=== PATIENT | female | born 1985 | race Caucasian/White ===

== ENCOUNTER 2020-01-29 16:08 | Emergency (ER) | payer OTHER, SELFPAY ==
[2020-01-29 16:16] VITALS: BP 138/86; PULSE 92; RESP 16; TEMP 37.7; O2SAT 100
--- NOTE | 2020-01-29 16:21 | ED.FEMALEGU ---
HPI - Female Genitourinary General Chief complaint: Urogenital-Female Stated complaint: frequent urination/painful urination Time Seen by Provider: 01/29/20 16:25 Source: patient and RN notes reviewed Mode of arrival: ambulatory Limitations: no limitations History of Present Illness HPI Narrative: 34-year-old female presents with concern for dysuria, frequency, low back pain that started today. She denies fever, nausea, vomiting, hematuria. Reports suprapubic discomfort MD elicited complaint: dysuria Related Data Home Medications Medication Instructions Recorded Confirmed Adderall 60 mg PO DAILY 03/13/19 01/29/20 Allergies Allergy/AdvReac Type Severity Reaction Status Date / Time bupropion Allergy Unknown Swelling Verified 01/29/20 16:31 Penicillins Allergy Unknown Hives Verified 01/29/20 16:31 Review of Systems Review of Systems: Narrative: CONSTITUTIONAL: Denies malaise, chills, sweats, or fever. CARDIOVASCULAR: Denies chest pain, palpitations RESPIRATORY: Denies cough or dyspnea. GASTROINTESTINAL: Denies abdominal pain, nausea, vomiting. Reports suprapubic discomfort GENITOURINARY: Reports dysuria, frequency. Denies hematuria. SKIN: Denies rash or itching. MUSCULOSKELETAL: Lateral low back pain. Denies myalgia. All systems reviewed & are unremarkable except as noted in HPI and below PMFSH Comments At time of signature, agree with nursing past medical, surgical, social and family history. There is no relevant family history pertinent to the presenting complaint Exam Narrative: Exam Narrative: GENERAL: Well-appearing, well-nourished, and in no acute distress. HEAD: Normocephalic. EYES: PERRLA, conjunctivae clear. NECK: Supple. No lymphadenopathy CHEST: Clear to auscultation. No respiratory distress. HEART: Regular rate and rhythm. No murmur heard. Normal peripheral pulses. ABDOMEN: Soft, nontender upon palpation, nondistended, normal active bowel sounds, no palpable or pulsatile masses, no guarding. No CVA tenderness SKIN: Warm, dry, no rash. NEURO: Alert and oriented x3. PSYCH: Normal mood and affect Course Course Emergency Course: Patient is aware of diagnosis, understands and agrees to treatment plan. Anticipatory guidance given. Patient agrees to follow-up as directed and is aware of reasons to seek care at the emergency department. Portions of this record may have been created with voice recognition software [employer] Signs Vital signs: Vital Signs Temperature 99.9 F H 01/29/20 16:16 Pulse Rate 92 01/29/20 16:16 Respiratory Rate 16 01/29/20 16:16 Blood Pressure 138/86 01/29/20 16:16 Pulse Oximetry 100 01/29/20 16:16 Temperature 99.9 F H 01/29/20 16:16 Pulse Rate 92 01/29/20 16:16 Respiratory Rate 16 01/29/20 16:16 Blood Pressure 138/86 01/29/20 16:16 Pulse Oximetry 100 01/29/20 16:16 Reviewed. Patient has been instructed to follow up with her primary care provider within the next week regarding her elevated blood pressure today. MDM - Female Genitourinary MDM Narrative Medical decision making narrative: Exam findings and UA show no acute concerns or changes; patient is non-toxic appearing and is in no distress. Patient is appropriate for outpatient treatment and follow-up. Differential Diagnosis Differential diagnosis: Likely urinary tract infection and cystitis Lab Data Labs: Urine Glucose Negative Reference Range: Negative Urine Bilirubin Negative Reference Range: Negative Urine Ketone Negative Reference Range: Negative Urine Specific [place] 1.030 Reference Range:1.001-1.035 Urine Blood 3+ Reference Range: Neg
== END 2020-01-29 16:43 | disposition home or self-care (01) ==
PROVIDERS: Emergency Provider Nurse Practitioner
DX: R35.0 Frequency of micturition (principal); R30.0 Dysuria; M54.5 Low back pain
CPT/HCPCS: 81003; 87077; 87086; 87088; 99213; G0463